=== PATIENT | female | born 1960 | race Caucasian/White ===

== ENCOUNTER → 2017-05-14 | Outpatient (CLI) | payer OTHER ==
[~2017-05-14] MED LIST: AMLO2.5T PO; CLC100 PO; IBUP-1050 PO; IBUP-1428 PO; LAMO100T16 PO; MAXIDE PO
== END | disposition home or self-care (01) ==
LOC: C.RDSM 09:34
PROVIDERS: ATTEND Family Medicine
DX: M79.672 Pain in left foot (principal)

== ENCOUNTER → 2017-08-23 | Outpatient (CLI) | payer OTHER | END | disposition home or self-care (01) | LOC: C.LABSPEC 12:08 | PROVIDERS: ATTEND Student in an Organized Health Care Education/Training Program | DX: J02.9 Acute pharyngitis, unspecified (principal) ==